=== PATIENT | female | born 1950 | race Caucasian/White ===

== ENCOUNTER 2016-08-15 08:15 | Outpatient (CLI) | payer BC | END 2016-08-15 08:16 | disposition home or self-care (01) | DX: Z12.31 Encounter for screening mammogram for malignant neoplasm of breast (principal) ==

== ENCOUNTER 2017-05-05 12:50 | Emergency (ER) | payer MEDICARE, BC ==
--- NOTE | 2017-05-05 14:45 | ED Physician Documentation ---
PD HPI HEAD INJURY - Stated complaint Stated Complaint: FALL HIT HEAD - Chief complaint Chief Complaint: Heent - History obtained from History obtained from: Patient, Family - History of Present Illness Mechanism of head injury: Fell Where head injury occurred: Home Timing - onset: How many hours ago (2) Pain level max: 3 Pain level now: 1 Location of injury: Back Quality of pain: Pain, Aching, Dull Associated symptoms: No: LOC, AMS, Amnesia, Nausea / vomiting, Neck pain, Paresthesias, Seizures, Ear drainage, Nasal drainage Symptoms improve with: Rest Symptoms worsen with: Palpation, Movement Contributing factors: No: Anticoagulated, Intoxicated Recently seen: Not recently seen - Additional information Additional information: td 2009, tripped and fell on cement today. No LOC. No vomiting. Review of Systems Constitutional: denies: Fever, Chills Eyes: denies: Photophobia Ears: denies: Ear pain Nose: denies: Rhinorrhea / runny nose, Congestion Throat: denies: Sore throat Cardiac: denies: Chest pain / pressure Respiratory: denies: Cough GI: denies: Abdominal Pain, Nausea, Vomiting Musculoskeletal: denies: Neck pain, Back pain Neurologic: denies: Focal weakness, Numbness, Confused, Altered mental status, LOC PD PAST MEDICAL HISTORY - Past Medical History Past Medical History: Yes Musculoskeletal: Chronic back pain Other Past Medical History: C2-7 bulging disc - Past Surgical History 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 - Present Medications Home Medications: Ambulatory Orders Medication Instructions Recorded Confirmed No Known Home Medications [No 05/05/17 05/05/17 Known Home Medications] - Allergies Allergies/Adverse Reactions: Allergies Allergy/AdvReac Type Severity Reaction Status Date / Time No Known Drug Allergies Allergy Verified 05/05/17 13:01 - Social History Does the pt smoke?: No Smoking Status: Never smoker Does the pt drink ETOH?: No Does the pt have substance abuse?: No - Immunizations Immunizations are current?: Yes - POLST Patient has POLST: No PD ED PE NORMAL - Vitals Vital signs reviewed: Yes - General General: Alert and oriented X 3, No acute distress, Well developed/nourished - HEENT HEENT: PERRL, EOMI, Ears normal, Moist mucous membranes, Pharynx benign, Other ( Small posterior scalp hematoma with abrasion. No laceration. No palpable skull fractures. Otherwise atraumatic exam) - Neck Neck: Supple, no meningeal sign, No bony TTP, Other (Full range of motion without pain) - Cardiac Cardiac: RRR, Strong equal pulses - Respiratory Respiratory: No respiratory distress, Clear bilaterally - Abdomen Abdomen: Soft, Non tender, Non distended - Back Back: No spinal TTP - Derm Derm: Warm and dry - Extremities Extremities: Normal ROM s pain - Neuro Neuro: Alert and oriented X 3, support services tech 2-12 intact, No motor deficit, No sensory deficit Eye Opening: Spontaneous Motor: Obeys Commands Verbal: Oriented GCS Score: 15 - Psych Psych: Normal mood, Normal affect Results - Vitals Vitals: Vital Signs - 24 hr 05/05/17 05/05/17 12:57 15:10 Temperature 36.8 C Heart Rate 72 68 Respiratory 16 16 Rate Blood Pressure 160/89 H 138/72 H O2 Saturation 98 97 Oxygen O2 Source Room air PD MEDICAL DECISION MAKING - ED course Complexity details: considered differential, d/w patient, d/w family ED course: Patient is a 66-year-old female presents to the emergency department after a trip and fall on concrete today. Struck the occiput, no loss of consciousness. No vomiting. Normal neurological examination. There is an abrasion that does not require repair. Wound was cleansed and bandaged. Tetanus is up-to- date. We did discuss a head CT, but she is low risk for intracranial hemorrhage or skull fracture that required repair. Instead, head injury instructions were given at bedside to patient and . He will stay with her today. Patient and family counseled regarding signs and symptoms for which I believe and urgent re-evaluation would be necessary. Patient with good understanding of and agreement to plan and is comfortable going home at this time This document was made in part using voice recognition software. While efforts are made to proofread this document, sound alike and grammatical errors may occur. Departure - Departure Disposition: 01 Home, Self Care Clinical Impression: Head injury Qualifiers: Encounter type: initial encounter Qualified Code(s): S09.90XA - Unspecified injury of head, initial encounter Scalp abrasion Qualifiers: Encounter type: initial encounter Qualified Code(s): S00.01XA - Abrasion of scalp, initial encounter Condition: Good Instructions: ED Head Injury Closed Follow-Up: Anamika Ramos PA-C [Primary Care Provider] - As Needed Comments: Keep the wound clean. Return if you worsen. Someone should stay with you today and return if they notice any changes in your behavior. You should also return for worsening headache, vomiting or any other new or worrisome symptoms. Discharge Date/Time: 05/05/17 15:10
[2017-05-05 15:10] VITALS: BP 138/72
== END 2017-05-05 15:10 | disposition home or self-care (01) ==
LOC: ED 12:50
DX: S00.01XA Abrasion of scalp, initial encounter (principal); W01.0XXA Fall on same level from slipping, tripping and stumbling without subsequent striking against object, initial encounter; Y92.019 Unspecified place in single-family (private) house as the place of occurrence of the external cause
CPT/HCPCS: 99283

== ENCOUNTER 2017-08-30 09:53 | Outpatient (CLI) | payer MEDICARE, BC ==
--- NOTE | 2017-08-31 10:25 | Mammography Report ---
DIGITAL SCREENING MAMMOGRAM: 08/30/2017 HISTORY: Routine. TECHNIQUE: Bilateral digital CC and MLO projections. COMPARISON: 08/15/2016, 06/29/2015, 06/29/2014, 05/27/2013, 05/09/2012 and 03/09/2011. FINDINGS: There are scattered fibroglandular densities. There is no dominant mass, architectural distortion, skin thickening, suspicious microcalcifications, or interval change. IMPRESSION: NEGATIVE. ACR BI-RADS CODE 1-NEGATIVE. SUGGEST RETURN TO ROUTINE SCREENING IN 12 MONTHS. STANDARD QUALIFYING STATEMENTS: 1. This examination was reviewed with the aid of Computer-Aided Detection (CAD). 2. A negative or benign imaging report should not delay biopsy if clinically suspicious findings are present. Consider surgical consultation if warranted. More than 5% of cancers are not identified by imaging. 3. Dense breasts may obscure an underlying neoplasm. TD: 08/31/2017 10:24
== END 2017-08-30 09:54 | disposition home or self-care (01) ==
LOC: DI 09:53
PROVIDERS: ATTEND Physician Assistant Medical
DX: Z12.31 Encounter for screening mammogram for malignant neoplasm of breast (principal)
CPT/HCPCS: 77067

== ENCOUNTER 2019-01-07 08:14 | Outpatient (CLI) | payer MEDICARE, BC ==
--- NOTE | 2019-01-07 16:37 | Mammography Report ---
Reason: SCREENING MAMMO Procedure Date: 01/07/2019 Accession Number: [id number] / [id number] Procedure: ANTHONY - Screening Mammo w/Nico CPT Code: FULL RESULT: EXAM: Screening Mammo w/Nico DATE: 01/07/2019 8:41 AM CLINICAL HISTORY: Screening examination. TECHNIQUE: (B) - Bilateral CC and MLO views were obtained. COMPARISON: 08/30/2017 through 17/07/2014. PARENCHYMAL PATTERN: (A) - The breast(s) demonstrate(s) scattered fibroglandular densities. FINDINGS: There are no suspicious masses, calcifications, or areas of distortion. IMPRESSION: Negative examination. BI-RADS category 1. RECOMMENDATION: (ANNUAL) - Recommend routine annual screening mammography. BI-RADS CATEGORY: (1) - Negative. STANDARD QUALIFYING STATEMENTS: 1. This examination was not reviewed with the aid of Computer-Aided Detection (CAD). 2. A negative or benign imaging report should not preclude biopsy if clinically suspicious findings are present. 3. Dense breasts may obscure an underlying neoplasm. 4. This examination was reviewed with the aid of 3D breast imaging (tomosynthesis).
== END 2019-01-07 08:15 | disposition home or self-care (01) ==
LOC: DI 08:14
DX: Z12.31 Encounter for screening mammogram for malignant neoplasm of breast (principal)
CPT/HCPCS: 77063; 77067